=== PATIENT | male | born 1980 | race Caucasian/White ===

== ENCOUNTER 2022-07-08 16:01 | Emergency (ER) | payer SELFPAY ==
[2022-07-08 16:23] VITALS: BP 112/68; PULSE 100; RESP 18; TEMP 98.4; BMI 30.7
[2022-07-08] MEDS ORDERED: IBUPROFEN 400 MG TABLET (FP) PO ONE ×2 (17:31→17:46)
== END 2022-07-08 18:40 | disposition home or self-care (01) ==
LOC: JERFT 16:01 → JER 16:01 → JERFT 18:40
PROC: 0HQFXZZ Repair Right Hand Skin, External Approach (ICD-10-PCS; principal; 2022-07-08)
DX: S61.411A Laceration without foreign body of right hand, initial encounter (principal); W25.XXXA Contact with sharp glass, initial encounter
CPT/HCPCS: 73130-TC-RT-FY; 99283-25

== ENCOUNTER 2022-07-15 11:36 | Emergency (ER) | payer SELFPAY ==
[2022-07-15 12:30] VITALS: BP 120/75; PULSE 81; RESP 18; TEMP 98.7; BMI 30.7
== END 2022-07-15 13:35 | disposition home or self-care (01) ==
LOC: JERFT 11:36
DX: Z48.02 Encounter for removal of sutures (principal)
CPT/HCPCS: 99281-25